=== PATIENT | male | born 1940 | race Caucasian/White ===

== ENCOUNTER → 2019-03-22 | Outpatient (REF) | payer OTHER ==
[2019-03-23 14:50] LABS: TOTAL PROTEIN 6.5 GM/DL (6.4-8.2)
[2019-03-23 15:20] LABS: TOTAL PROTEIN,RANDOM URINE 182.1 MG/DL (0.0-12.0); URINE TOTAL PROTEIN 182.1 MG/DL (0-12)
[2019-03-24 14:50] LABS: ANTINUCLEAR ANTIBODIES DIRECT Negative (Negative)
[2019-03-28 12:47] LABS: ALBUMIN 4.16 GM/DL (3.29-5.55); ALPHA-1-GLOBULIN % 4.7 % (2.9-4.9); ALPHA-1-GLOBULINS 0.31 GM/DL (0.17-0.41); ALPHA-2-GLOBULINS 0.91 GM/DL (0.42-0.99); BETA-1-GLOBULINS 0.36 GM/DL (0.28-0.60); BETA-1-GLOBULINS % 5.6 % (4.7-7.2); BETA-2-GLOBULINS 0.24 GM/DL (0.19-0.55); BETA-2-GLOBULINS % 3.7 % (3.2-6.5); GAMMA GLOBULINS 0.52 GM/DL (0.65-1.58)
[2019-03-30 15:23] LABS: UPEP INTERPRETATION NO M-SPIKE NOTED; URINE VOLUME RANDOM ML
== END ==
LOC: M LAB REF 13:26
PROVIDERS: ATTEND Internal Medicine Nephrology
DX: R80.9 Proteinuria, unspecified (principal)

== ENCOUNTER → 2019-03-28 | Outpatient (CLI) | payer OTHER ==
--- NOTE | 2019-03-29 12:01 | REP ---
Clinical: Chronic medical renal disease stage III. Technique: Real time costa scale ultrasound examination using curved array transducer. Findings: The bilateral kidneys are hyperechoic and demonstrate a decreased parenchymal thickness with increased central sinus fat and renovascular calcifications. No hydronephrosis, nephrolithiasis, or renal mass lesion. Right kidney measures 10.7 x 4.9 x 5.2 cm and includes 1.7 cm upper pole simple cyst. Left kidney measures 11.3 x 4.2 x 5.0 cm without cyst. Bladder is grossly unremarkable in appearance and without wall thickening or mass lesion. Impression: Findings consistent with chronic medical renal disease. Electronically Signed by Chao uMhammad MD 03/29/2019 05:04 A
== END ==
LOC: M RAD 10:22
PROVIDERS: ATTEND Internal Medicine Nephrology
DX: N18.3 Chronic kidney disease, stage 3 (moderate) (principal); I12.9 Hypertensive chronic kidney disease with stage 1 through stage 4 chronic kidney disease, or unspecified chronic kidney disease; E11.22 Type 2 diabetes mellitus with diabetic chronic kidney disease

== ENCOUNTER → 2019-04-06 | Outpatient (REF) | payer OTHER ==
[2019-04-12 14:15] LABS: ANCA-ATYPICAL <1:20 titer (Neg:<1:20); ANTI DS-DNA AB <1:10 titer (.); CYTOPLASMIC NEUTROP AB ANCA-C <1:20 titer (Neg:<1:20); PERINUCLEAR AB ANCA-P <1:20 titer (Neg:<1:20)
== END ==
LOC: M LAB REF 12:35
PROVIDERS: ATTEND Internal Medicine Nephrology
DX: R80.9 Proteinuria, unspecified (principal)

== ENCOUNTER → 2020-04-10 | Outpatient (REF) | payer OTHER | LOC: M LAB REF 16:40 | PROVIDERS: ATTEND Internal Medicine Nephrology | DX: N39.0 Urinary tract infection, site not specified (principal) ==

== ENCOUNTER → 2020-04-11 | Outpatient (CLI) | payer OTHER ==
--- NOTE | 2020-05-02 07:11 | REP ---
BLADDER ULTRASOUND: 04/11/20 CLINICAL: Chronic renal disease and UTI. TECHNIQUE: Real time costa scale ultrasound examination using curved array transducer. FINDINGS: Mild bladder wall thickening to 4.8mm is appreciated without discrete bladder mass. A left ureteral jet was noted during examination, but right ureteral jet was never identified. Small amount of debris is appreciated which is nonspecific and may be correlated with urinalysis. Pre-void bladder measures 14.8 x 8.3 x 9.4cm (754cc). Post-void bladder measures 12.0 x 8.0 x 6.5cm (407cc). Post-void residual: 54% IMPRESSION: Mild bladder wall thickening and increased post-void residual volume as noted above. Findings are nonspecific and may be related to outlet obstruction. MTDD
== END ==
LOC: M RAD 09:47
PROVIDERS: ATTEND Internal Medicine Nephrology
DX: N18.3 Chronic kidney disease, stage 3 (moderate) (principal); N39.0 Urinary tract infection, site not specified; Z85.46 Personal history of malignant neoplasm of prostate

== ENCOUNTER → 2020-07-31 | Outpatient (CLI) | payer OTHER, MEDICARE ==
[2020-07-31 13:43] LABS: TESTOSTERONE < 7 NG/DL (241-827)
== END ==
LOC: M LAB 11:34
PROVIDERS: ATTEND Urology
DX: C61 Malignant neoplasm of prostate (principal)
CPT/HCPCS: 36415; 84403; G0103

== ENCOUNTER → 2020-10-03 | Outpatient (CLI) | payer MEDICARE ==
--- NOTE | 2020-10-03 14:12 | REP ---
INDICATION: PROSTATE CA. COMPARISON: None. TECHNIQUE/RADIOTRACER AND DOSE: Following the intravenous administration of 22 mCi technetium 99 M MDP, patient's whole-body is imaged in the anterior and posterior projections, with additional oblique and lateral projections obtained. FINDINGS: Mild scattered arthritic uptake is seen throughout the spine. There is periarticular mild arthritic uptake at shoulders and sternoclavicular joints. There is no compelling scintigraphic evidence of osseous metastases. Renal and bladder activity are seen. There is ehax-oh-[id number] left hydroureteronephrosis. IMPRESSION: No compelling scintigraphic evidence of osseous metastases. Xsuk-sq-tdqlderm left hydroureteronephrosis. <Electronically signed by Quinn Mccarthy > 10/03/20 [id number]
== END ==
LOC: M RAD 10:39
PROVIDERS: ATTEND Urology
DX: C61 Malignant neoplasm of prostate (principal)
CPT/HCPCS: 78306; A9503

== ENCOUNTER → 2020-10-28 | Outpatient (CLI) | payer MEDICARE ==
--- NOTE | 2020-10-28 14:01 | REP ---
INDICATION: RESTAGING PROSTATE CANCER C61. COMPARISON: Comparison radionuclide bone scan October 03, 2020.. TECHNIQUE: Forty-nine minutes following the intravenous injection of a 18.50 mCi dose of F-18 FDG, three-dimensional PET scintigraphy is acquired from the skull base to the proximal thighs. Triplanar noncontrast CT scanning is acquired through the same anatomic range for attenuation correction, and image registration with scan parameters optimized to minimize radiation exposure to the patient. PET scintigraphy and CT datasets were fused and displayed on a workstation with multiplanar and projection display capability. FINDINGS: Head and neck soft tissues are unremarkable. No abnormal hypermetabolic uptake is seen within the thorax. In the abdomen and pelvis, normal hepatic, splenic, and gastrointestinal FDG accumulation is seen. There is moderate left-sided hydronephrosis and hydroureter. The left ureter is dilated to the level of the pelvis where there is left posterior pelvic sidewall soft tissue density and corresponding hypermetabolic uptake consistent with extraprostatic disease extending to the left posterior pelvic sidewall. Maximum standard uptake value here is 6.07. There is hypermetabolic uptake and throughout the prostate and extending into the seminal vesicles and possibly the rectum. Maximum standard uptake value in the prostate bed is 9.44. Seminal vesicle uptake, 9.43. There is no evidence of a pelvic deandra hypermetabolic uptake. There is no definite hypermetabolic skeletal uptake to suggest bony metastasis. IMPRESSION: Hypermetabolic uptake in the prostate bed and in the seminal vesicles. There is hypermetabolic tissue extending to the left posterolateral pelvic sidewall and the there is evidence of obstructive uropathy on the left related to this. No evidence of deandra disease in the pelvis or abdomen. No scintigraphic evidence of skeletal metastasis. <Electronically signed by Jeff Temple > 10/28/20 [id number]
== END ==
LOC: M PLARAD 09:22
PROVIDERS: ATTEND Urology
DX: C61 Malignant neoplasm of prostate (principal); N13.9 Obstructive and reflux uropathy, unspecified; D41.22 Neoplasm of uncertain behavior of left ureter
CPT/HCPCS: 78815; A9552

== ENCOUNTER → 2020-11-14 | Outpatient (REF) | payer MEDICARE ==
[~2020-11-14] MED LIST: ALEN70SO PO; ALLO100T PO; ASPI81CH10 PO; ATOR40TA75 PO; BICA50TA9 PO; CALC1CAP31 PO; HUMA100I3 SC; KP F1200 PO; LANTINJ4 SC; LEVO25TA5 PO; LOSA25TA14 PO; SUPE600T4 PO; TAMS1CAP17 PO
[2020-11-14 14:19] LABS: APPEARANCE, URINE CLOUDY (CLEAR); BACTERIA, URINE AUTO 1+ (NEGATIVE); BILIRUBIN, URINE AUTO NEGATIVE (NEGATIVE); BLOOD, URINE BLOOD NEGATIVE (NEGATIVE); COLOR, URINE YELLOW (YELLOW); GLUCOSE, URINE (UA) AUTO NEGATIVE (NEGATIVE); KETONE, URINE AUTO NEGATIVE (NEGATIVE); LEUKOCYTE ESTERASE, URINE AUTO 3+ (NEGATIVE); MUCUS, URINE SMALL (NEGATIVE); NITRITE, URINE AUTO NEGATIVE (NEGATIVE); PROTEIN, URINE AUTO 2+ mg/dL (NEGATIVE); RBC, URINE AUTO 2 /HPF (0-3); SPECIFIC GRAVITY URINE AUTO 1.012 (1.002-1.035); SQUAMOUS EPITHELIAL CELL UR AU 0 /HPF (0-6); UROBILINOGEN, URINE AUTO 0.2 mg/dL (0.0-2.0); WBC, URINE AUTO TNTC /HPF (0-3)
== END ==
LOC: M SMT 11:18
PROVIDERS: ATTEND Urology
DX: R33.9 Retention of urine, unspecified (principal); C61 Malignant neoplasm of prostate

== ENCOUNTER → 2020-11-18 | Outpatient (CLI) | payer MEDICARE | LOC: M LABSMTC 10:32 | PROVIDERS: ATTEND Anesthesiology | DX: Z01.818 Encounter for other preprocedural examination (principal); Z11.52 Encounter for screening for COVID-19 ==

== ENCOUNTER 2020-11-21 08:44 | Day surgery (SDC) | payer MEDICARE ==
[~2020-11-21] VITALS: Ht 170.2 cm; Wt 66.3 kg
[~2020-11-21 08:44] MED LIST changes: +LIDOCAINE 1% MDV 20ML VIAL SQ PRN; +LR 1,000 ML IV ONE; +ceFAZolin SOD 2 GM in IV 1 EA IV ONE
[2020-11-21] MEDS ORDERED: LIDOCAINE 2% 100MG/5ML SDV (FOR ANES.) As Ordered ONE (09:53)
[2020-11-21] MEDS ORDERED: KETOROLAC 60MG 2ML VIAL As Ordered ONE (09:53)
[2020-11-21] MEDS ORDERED: ONDANSETRON 4MG/2ML VIAL As Ordered ONE (09:53)
[2020-11-21] MEDS ORDERED: propofoL 500 MG/50 ML VIAL As Ordered ONE (09:54)
[2020-11-21] MEDS ORDERED: fentaNYL 100 MCG/2 ML INJECTION (J3010) As Ordered ONE (09:54)
[2020-11-21] MEDS ORDERED: MIDAZOLAM INJ 2MG/2ML VIAL (J2250 PER 1MG) As Ordered ONE (09:54)
[2020-11-21] MEDS ORDERED: LIDOCAINE 2% 5ML JELLY UROJET As Ordered ONE ×2 (10:08→10:09)
[2020-11-21] MEDS: CONRAY-60 60% 50ML VIAL (Q9961) As Ordered ONE (10:55)
--- NOTE | 2020-11-21 12:22 | REP ---
INDICATION: LEFT STENT. COMPARISON: None. TECHNIQUE: Intraoperative fluoroscopic imaging using C-arm technique. FINDINGS: Images demonstrate grade 3 hydroureteronephrosis and subsequent ureteral stent placement. Total fluoroscopic time 136 seconds. IMPRESSION: Status post left ureteral stent placement <Electronically signed by Chao Muhammad > 11/21/20 [id number]
--- NOTE | 2020-11-21 13:21 | RO ---
OPERATIVE NOTE DATE OF OPERATION: 11/21/2020 PREOPERATIVE DIAGNOSIS: Left ureteral obstruction, metastatic prostate cancer. POSTOPERATIVE DIAGNOSIS: Left ureteral obstruction, metastatic prostate cancer. PROCEDURE: Cystoscopy, left ureteral dilation, left ureteral catheterization, left retrograde pyelogram with intraop interpretation of images. SURGEON: Salvador Parker MD APPLIANCE SALES ASSOCIATE: None. ANESTHESIA: MAC. OPERATIVE INDICATIONS: This is a 80-year-old male with left ureteral obstruction due to metastatic prostate cancer. He is brought to the operating room today with plan to place left ureteral stent. DESCRIPTION OF PROCEDURE: The patient was brought to the operating room and MAC anesthesia was administered. Prophylactic antibiotics were infused. He was placed in dorsal lithotomy position and prepped and draped in usual sterile fashion. A rigid cystoscope was inserted in the urethral meatus and advanced into the bladder. I then advanced a guidewire in left collecting system. Of note there was some difficulty due to narrowing in the distal left ureter. I then advanced the 5-Zimbabwean open-ended ureteral catheter into the left collecting system and this also went up with some difficulty. I then withdrew the wire and shot a retrograde pyelogram. It was notable for severe left hydroureteronephrosis down to the level of the bladder. At this point I advanced the guidewire back up the left collecting system. I then tried to advance the sheath for a metallic stent into the left collecting system but due to the stricture noted at the left distal ureter I was not able to get the sheath into the left collecting system. I therefore tried dilating his left ureter with fascial dilators and they would not properly dilate the distal left ureter. The dilators just kept bending inside the bladder. At this point I then tried to advance a 7-Zimbabwean x 22 cm black silicone ureteral stent over the wire up into the left collecting system. Due to the constriction of the distal ureter the 7-Zimbabwean black silicone stent would not go in. At this point I lastly tried to advance a 5-Zimbabwean x 22-32 cm JJ ureteral stent into the left collecting system and it too would not go up the distal ureter as it was too narrow and this was the smallest stent that we have. Because of this it was determined that it would not be possible to actually stent the patient's left ureter. At this point I withdrew the wire as well as the stent. I then inserted a 16-Zimbabwean Coude catheter back into the patient's bladder. The balloon was filled with 10 mL of sterile water and then the catheter was connected to gravity drainage. The patient was taken out of the dorsal lithotomy position, awakened from anesthesia and transferred to the recovery room in stable condition. ESTIMATED BLOOD LOSS: 10 mL. COMPLICATIONS: None. SPECIMEN: None. PLAN: In order to drain the patient's left collecting system he will need to have a nephrostomy tube placed. Will set this up to be done as an outpatient. SUSANNE
[2020-11-21 13:36] VITALS: BP 131/64
== END 2020-11-21 14:05 | disposition home or self-care (01) ==
LOC: M SDC 08:44
PROVIDERS: ATTEND Urology
DX: N13.1 Hydronephrosis with ureteral stricture, not elsewhere classified (principal); Z85.46 Personal history of malignant neoplasm of prostate; E11.22 Type 2 diabetes mellitus with diabetic chronic kidney disease; I13.10 Hypertensive heart and chronic kidney disease without heart failure, with stage 1 through stage 4 chronic kidney disease, or unspecified chronic kidney disease; I25.10 Atherosclerotic heart disease of native coronary artery without angina pectoris; Z95.5 Presence of coronary angioplasty implant and graft; E78.00 Pure hypercholesterolemia, unspecified; M10.9 Gout, unspecified; M81.0 Age-related osteoporosis without current pathological fracture; N18.30 Chronic kidney disease, stage 3 unspecified; Z79.899 Other long term (current) drug therapy; Z79.82 Long term (current) use of aspirin; Z79.84 Long term (current) use of oral hypoglycemic drugs; Z79.2 Long term (current) use of antibiotics
CPT/HCPCS: 52332; 52351; 74420; C1769; C2617; J0690; J1885; J2250; J2405; J3010; Q9961

== ENCOUNTER → 2020-11-26 | Outpatient (POV) | payer MEDICARE ==
[~2020-11-26] VITALS: Ht 171.4 cm; Wt 81.8 kg
[~2020-11-26] MED LIST changes: -LIDOCAINE 1% MDV 20ML VIAL SQ PRN; -LR 1,000 ML IV ONE; -ceFAZolin SOD 2 GM in IV 1 EA IV ONE
[2020-11-26 12:47] VITALS: BP 149/85
--- NOTE | 2020-11-27 13:59 | IRCOV ---
[facility] IR Consult Office Visit IR Consult Office Visit DATE: Nov 26, 2020 REASON FOR CONSULTATION/CHIEF COMPLAINT: Left ureteral obstruction. HISTORY OF PRESENT ILLNESS: 80-year-old male with metastatic prostate cancer, urinary retention and left-sided hydronephrosis, referred by urology for possible left nephrostomy drainage. Patient denies any relatable symptoms. Specifically no left flank pain, fevers or chills. He reports this was found on routine imaging. Patient reports prior episodes of acute urinary retention and does have a chronic Steel in place. It appears he does not have any labs in our system and I'm not sure of his renal function. ALLERGIES: Please see below. HOME MEDICATIONS: Please see below. PAST MEDICAL HISTORY: Diabetes Abdominal hernia Hypertension Hypothyroidism Prostate cancer Aortic aneurysm Kidney disease Gout Hyperlipidemia Vitamin D deficiency Osteopenia CAD PAST SURGICAL HISTORY: Cystoscopy May 2020 FAMILY HISTORY: Noncontributory. SOCIAL HISTORY: Nonsmoker. Denies alcohol or drugs. REVIEW OF SYSTEMS: Otherwise negative. PHYSICAL EXAMINATION: VITAL SIGNS: Please see below. GENERAL APPEARANCE: Appears well. Comfortable at rest. HEENT: No scleral icterus. RESPIRATORY: Normal breathing at rest. CARDIOVASCULAR: Normal rate. ABDOMEN: Soft nontender. No flank tenderness. EXTREMITIES: No edema. NEUROLOGICAL: Alert and oriented. PSYCHIATRIC: Appropriate to circumstance. LABORATORY DATA: None recent in system. Imaging: I personally reviewed the PET/CT performed 10/28/2020. Good-sized bilateral kidneys without significant parenchymal atrophy with left-sided hydronephrosis and hydroureter all the way to the bladder. Steel in the bladder. 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 We discussed the risks and benefits of nephrostomy and nephro ureteral catheters. Patient would like to proceed. We'll schedule the patient for a left-sided nephrostomy. Providing he tolerates this well, we can always discuss options for antegrade internal/external stent placement and/or antegrade complete internalization and ongoing management by urology. I spent 30 minutes in consultation with the patient. Thank you for this referral. Cc Dr. Parker Allergies Coded Allergies: No Known Allergies (Verified , 11/14/20) Home Medications Scheduled Alendronate Sodium (Alendronate Sodium), 70 MG PO 1XWK, (Reported) Allopurinol (Allopurinol), 300 MG PO DAILY, (Reported) Aspirin (Aspirin), 81 MG PO DAILY, (Reported) Atorvastatin Calcium (Atorvastatin Calcium), 20 MG PO DAILY, (Reported) Bicalutamide (Bicalutamide), 50 MG PO DAILY, (Reported) Calcitriol (Calcitriol), 0.25 MCG PO 3XW, (Reported) Calcium Carbonate (Calcium), 600 MG PO BID, (Reported) Fish Oil/Dha/Epa (Fish Oil 1,200 mg Fish Oil), 1 CAP PO BID, (Reported) Insulin Glargine,Hum.rec.anlog (Lantus Solostar), 34 UNITS SC QHS, (Reported) Insulin Lispro (Humalog), Unknown Dose SC AC, (Reported) Levothyroxine Sodium (Levothyroxine Sodium), 25 MCG PO DAILY, (Reported) Losartan Potassium (Losartan Potassium), 25 MG PO DAILY, (Reported) Tamsulosin Hcl (Tamsulosin HCl), 0.4 MG PO QHS, (Reported) VS, I&O, 24H, Fishbone Vital Signs/I&O Vital Signs Date Time Temp Pulse Resp B/P (MAP) Pulse Ox O2 Delivery O2 Flow Rate FiO2 11/26/20 12:47 97.1 88 20 149/85 (106) 100 Room Air CHOLO BHATT MD Nov 27, 2020 13:59
== END ==
LOC: M IRPOV 11:35
PROVIDERS: ATTEND Radiology Diagnostic Radiology
DX: N13.0 Hydronephrosis with ureteropelvic junction obstruction (principal); N13.4 Hydroureter; C61 Malignant neoplasm of prostate; R33.9 Retention of urine, unspecified; E11.9 Type 2 diabetes mellitus without complications; I10 Essential (primary) hypertension; E03.9 Hypothyroidism, unspecified; I71.4 Abdominal aortic aneurysm, without rupture; N28.9 Disorder of kidney and ureter, unspecified; M10.9 Gout, unspecified; E78.5 Hyperlipidemia, unspecified; E55.9 Vitamin D deficiency, unspecified; M85.80 Other specified disorders of bone density and structure, unspecified site; I25.10 Atherosclerotic heart disease of native coronary artery without angina pectoris; Z79.4 Long term (current) use of insulin; Z79.82 Long term (current) use of aspirin; Z79.899 Other long term (current) drug therapy

== ENCOUNTER → 2020-12-05 | Outpatient (CLI) | payer MEDICARE ==
[~2020-12-05] MED LIST changes: +ISOVUE-300 61% 50ML VIAL As Ordered ONE; +LIDOCAINE 1% MDV 20ML VIAL As Ordered ONE; +MIDAZOLAM INJ 2MG/2ML VIAL (J2250 PER 1MG) As Ordered ONE; +ceFAZolin 1GM VIAL (J0690 PER 500MG) As Ordered ONE; +diphenhydrAMINE 50MG/ML VIAL (J1200) As Ordered ONE; +fentaNYL 100 MCG/2 ML INJECTION (J3010) As Ordered ONE
[2020-12-05 10:18] LABS: HEMATOCRIT 34.8 % (42.0-52.0); HEMOGLOBIN 11.3 g/dl (13.5-17.5); MEAN CORPUSCULAR HEMOGLOBIN 28.7 pg (27.0-33.0); MEAN CORPUSCULAR HGB CONC 32.5 g/dl (32.0-36.5); MEAN CORPUSCULAR VOLUME 88.3 fl (80.0-96.0); PLATELET COUNT, AUTOMATED 251 10^3/uL (150-450); RED BLOOD COUNT 3.94 10^6/uL (4.30-6.10); WHITE BLOOD COUNT 10.8 10^3/uL (4.0-10.0)
[2020-12-05] MEDS: ceFAZolin SOD 1 GM in D5W MINI-BAG PLUS 50 ML IV ONE (10:28)
[2020-12-05 10:32] LABS: INR 1.08; PROTHROMBIN TIME 14.2 SECONDS (12.5-14.3)
--- NOTE | 2020-12-05 12:29 | IRHP ---
[facility] IR Pre-Procedure H & P General Date of Service: December 05, 2020 Procedure: Same Day Surgery Interval History and Physical I have seen the patient and reviewed last H & P performed within 30 days. There is no significant interval change. History of Present Illness Chief Complaint The patient is a 80-year-old male admitted with a reason for visit of Ureteral Obstruction. PRE-PROCEDURE DIAGNOSIS: Left-sided hydronephrosis HEART: Normal rate LUNGS: Normal breathing at rest. ASA Classification ASA Classification: III-Severe systemic dis. Mallampati Score: II NPO: Yes Problems with prior sedation: No Obstructive Sleep Apnea: No Plan moderate sedation Allergies Coded Allergies: No Known Allergies (Verified , 11/14/20) Home Medications Scheduled Allopurinol (Allopurinol), 300 MG PO DAILY, (Reported) Aspirin (Aspirin), 81 MG PO DAILY, (Reported) Atorvastatin Calcium (Atorvastatin Calcium), 20 MG PO DAILY, (Reported) Bicalutamide (Bicalutamide), 50 MG PO DAILY, (Reported) Calcitriol (Calcitriol), 0.25 MCG PO 3XW, (Reported) Calcium Carbonate (Calcium), 600 MG PO BID, (Reported) Fish Oil/Dha/Epa (Fish Oil 1,200 mg Fish Oil), 1 CAP PO BID, (Reported) Insulin Glargine,Hum.rec.anlog (Lantus Solostar), 34 UNITS SC QHS, (Reported) Insulin Lispro (Humalog), Unknown Dose SC AC, (Reported) Levothyroxine Sodium (Levothyroxine Sodium), 25 MCG PO DAILY, (Reported) Losartan Potassium (Losartan Potassium), 25 MG PO DAILY, (Reported) Tamsulosin Hcl (Tamsulosin HCl), 0.4 MG PO QHS, (Reported) Discontinued Medications Alendronate Sodium (Alendronate Sodium), 70 MG PO 1XWK, (Reported) Discontinued Reason: S.O. states not taking VS, I&O, 24H, Fishbone Vital Signs/I&O Vital Signs Date Time Temp Pulse Resp B/P (MAP) Pulse Ox O2 Delivery O2 Flow Rate FiO2 12/05/20 12:25 93 20 100 Nasal Cannula 2 12/05/20 09:55 97.7 Laboratory Data 24H LABS Laboratory Tests 2 12/05/20 10:00: Nucleated Red Blood Cells % (auto) 0.0, Prothrombin Time 14.2H, Prothromb Time International Ratio 1.08 12/05/20 10:25: Bedside Glucose (Misc Panel) 132H CBC/BMP Laboratory Tests 12/05/20 10:00 CHOLO BHATT MD December 05, 2020 12:29
[2020-12-05 14:45] VITALS: BP 145/88
--- NOTE | 2020-12-06 12:48 | IRPON ---
IR Postoperative Note Date Of Procedure: December 05, 2020 Time Of Procedure: 16:00 IR Postoperative Note IR Percutaneous nephrostomy catheter placement using fluoroscopic and ultrasound guidance. IR Nephrostogram and Ureterogram. IR Ultrasound of the left kidney. IR moderate sedation. Clinical Information:Left-sided hydronephrosis. Physician: Dr. Leslie. Procedure: The patient was advised of the benefits, risks, and alternatives of the procedure and informed consent was obtained. A time out was performed with verification of the patient's name, MRN, site of procedure, and type of procedure to be performed. The patient was positioned in the prone position on the angiographic table. The site was prepped and draped in the usual sterile fashion. Moderate sedation was performed by the physician including the presence of an independent trained RN, who assisted in monitoring the patient's level of consciousness and physiological status. Following the administration of fentanyl and Versed, the physician spent 45 minutes of continuous widq-kw-efju time with the patient. A microphone boom operator radiograph reveals no gross abnormality. The anticipated puncture site on the flank was anesthetized with lidocaine. Using ultrasound guidance, a lower pole calyx was accessed with a 21 Gauge Chiba needle. A nephrostogram and ureterogram were performed demonstrating severe hydronephrosis and hydroureter. A [place] wire was then advanced into the c ollecting system, under fluoroscopy guidance. The needle was then exchanged for a nonvascular introducer set. An Amplatz wire was then advanced into the ureter, under fluoroscopy guidance. This sheath was removed over the wire. A 10 Finnish nephrostomy catheter was then advanced, over the wire and under fluoroscopy guidance into the renal collecting system. The pigtail was formed and locked in position. A final nephrostogram and ureterogram were performed confirming positioning of the pigtail within the renal pelvis with hydronephrosis. Ureterogram demonstrates hydroureter. The ureter is not patent to the urinary bladder. The catheter was sutured in position with 2-0 Prolene and a sterile dressing applied. The catheter was placed to gravity drainage. The patient tolerated the procedure well and was returned to the PRU in stable condition. EBL: < 5 mL. Complications:None. Conclusion: 1. Nephrostogram and Ureterogram demonstratemassive hydronephrosis and hydroureter. The ureter is not patent to the bladder. 2. Successful left-sided nephrostomy catheter placement. Patient to follow-up in IR after appropriate decompression for attempt at antegrade stenting. Thank you for this referral. Cc CHOLO Grissom MD December 06, 2020 12:48
== END ==
LOC: M IRPRO 09:36
PROVIDERS: ATTEND Radiology Diagnostic Radiology
DX: N13.30 Unspecified hydronephrosis (principal); Z79.4 Long term (current) use of insulin; Z79.82 Long term (current) use of aspirin; Z79.890 Hormone replacement therapy; Z79.899 Other long term (current) drug therapy

== ENCOUNTER → 2020-12-24 | Outpatient (POV) | payer MEDICARE ==
[~2020-12-24] VITALS: Ht 171.4 cm; Wt 70.5 kg
[~2020-12-24] MED LIST changes: -ISOVUE-300 61% 50ML VIAL As Ordered ONE; -LIDOCAINE 1% MDV 20ML VIAL As Ordered ONE; -MIDAZOLAM INJ 2MG/2ML VIAL (J2250 PER 1MG) As Ordered ONE; -ceFAZolin 1GM VIAL (J0690 PER 500MG) As Ordered ONE; -diphenhydrAMINE 50MG/ML VIAL (J1200) As Ordered ONE; -fentaNYL 100 MCG/2 ML INJECTION (J3010) As Ordered ONE
[2020-12-24 09:32] VITALS: BP 128/60
--- NOTE | 2020-12-24 14:37 | IRPN ---
[facility] IR Progress Note IR Progress Note DATE: December 24, 2020 FOLLOW-UP: Patient is status post left-sided nephrostomy placement for left sided hydronephrosis, related to a left distal ureteral obstruction. Patient is doing well. He denies any flank pain, fevers or chills. He does state the skin around the site is sore, especially when the catheter pulls. He does have a bag for the left nephrostomy catheter and a bag on his Steel. It is cumbersome to be up and about with 2 bags. ON EXAMINATION: Left nephrostomy catheter in place. Skin appears unremarkable. No redness or fluctuance at site. Clear urine in the nephrostomy bag. IMPRESSION: 80-year-old male with history of prostate cancer, with chronic Steel in place, now status post left-sided nephrostomy catheter placement for left- sided hydronephrosis and hydroureter. He does have a distal ureteral obstruction. Now after adequate decompression, I think it is a good idea to try to do an antegrade internal/external stent placement. This will allow the patient to be bag free, which is better for quality of life. But also maintain antegrade access for daily flushing of stent and IR exchanges. If patient tolerates the antegrade internal/external stent, patient may then be completely internalized in the future. We discussed the risks and benefits of the procedure and patient is agreeable to proceed. We'll schedule the patient for nephrostomy to antegrade internal/external stent conversion. Continue follow up with urology as to cause of distal obstruction and any possible therapies. Thank you for this referral. Cc Dr. Parekr Allergies Coded Allergies: No Known Allergies (Verified , 11/14/20) VS,Fishbone, I+O VS, Fishbone, I+O Vital Signs Date Time Temp Pulse Resp B/P (MAP) Pulse Ox O2 Delivery O2 Flow Rate FiO2 12/24/20 09:32 97.7 86 20 128/60 (82) 100 Room Air CHOLO BHATT MD December 24, 2020 14:37
== END ==
LOC: M IRPOV 09:11
PROVIDERS: ATTEND Radiology Diagnostic Radiology
DX: N13.1 Hydronephrosis with ureteral stricture, not elsewhere classified (principal); Z85.46 Personal history of malignant neoplasm of prostate; Z95.828 Presence of other vascular implants and grafts

== ENCOUNTER → 2020-12-25 | Outpatient (REF) | payer OTHER, MEDICARE ==
[2020-12-25 18:22] LABS: PERCENT SATURATION 12.2 % (19.7-50.0)
== END ==
LOC: M LAB REF 17:10
PROVIDERS: ATTEND Internal Medicine Nephrology
DX: D64.9 Anemia, unspecified (principal)

== ENCOUNTER 2021-01-24 23:24 | Emergency (ER) | payer OTHER ==
[~2021-01-24] VITALS: Ht 170.2 cm; Wt 81.8 kg
[2021-01-25 08:14] LABS: HEMATOCRIT 27.5 % (42.0-52.0); HEMOGLOBIN 8.8 g/dl (13.5-17.5); MEAN CORPUSCULAR HEMOGLOBIN 28.4 pg (27.0-33.0); MEAN CORPUSCULAR VOLUME 88.7 fl (80.0-96.0); PLATELET COUNT, AUTOMATED 189 10^3/uL (150-450); WHITE BLOOD COUNT 8.3 10^3/uL (4.0-10.0)
--- NOTE | 2021-01-25 08:15 | REPVR ---
PROCEDURE INFORMATION: Exam: US Retroperitoneal Limited, Kidneys Exam date and time: 01/25/2021 6:53 AM Age: 80 years old Clinical indication: Injury or trauma; Other: Patient pulled out left nephrostomy tube; Bleeding/hemorrhage; Luq; Injury date: 01/24/2021; Injury details: Patient ran over lt nephrostomy tube with wheel chair and oulled it out; Additional info: L nephrostomy tube pulled out today TECHNIQUE: Imaging protocol: Real-time ultrasound of the retroperitoneum with image documentation. Examination was focused on the kidneys. COMPARISON: RENAL US 03/28/2019 10:44:25 AM FINDINGS: Right kidney: The right kidney measures 9.5 x 4.7 x 4.3 cm. It again appears echogenic. No hydronephrosis or demonstrated stone, cyst or mass. Left kidney: The left kidney measures 11.3 x 5.0 x 5.5 cm. It again appears echogenic. There is moderate to severe hydronephrosis. No demonstrated stone, cyst or mass. Bladder: The urinary bladder is decompressed by Steel catheter. IMPRESSION: 1. Bilateral echogenic kidneys, compatible with medical renal disease, as on 03/28/2019. 2. Moderate to severe left-sided hydronephrosis. Electronically signed by: Duane Siddiqui On 01/25/2021 08:15:15 AM
[2021-01-25 08:37] LABS: ALBUMIN 2.5 GM/DL (3.2-5.2); BILIRUBIN,DIRECT 0.2 MG/DL (0.0-0.2); BILIRUBIN,TOTAL 0.4 MG/DL (0.2-1.0); CALCIUM LEVEL 8.1 MG/DL (8.8-10.2); CREATININE FOR GFR 2.44 MG/DL (0.70-1.30); GLOMERULAR FILTRATION RATE 27.4 (>42); POTASSIUM SERUM 3.9 MEQ/L (3.5-5.1); TOTAL PROTEIN 5.7 GM/DL (6.4-8.2)
[2021-01-25 08:38] LABS: RSV AMPLIFICATION NEGATIVE (NEGATIVE)
[2021-01-25 09:05] LABS: LYMPHOCYTES 6 % (16-44); MONOCYTES 5 % (0-5); NEUTROPHILS 80 % (28-66)
[2021-01-25 09:09] LABS: PLATELET ESTIMATE NORMAL (NORMAL)
[2021-01-25] MEDS ORDERED: ACETAMINOPHEN TAB 650MG DOSE (2X325MG) PO ONE (09:35)
[2021-01-25 10:10] VITALS: BP 100/60
[2021-01-25] MEDS ORDERED: NS 1,000 ML IV ONE (10:15)
[2021-01-25] MEDS ORDERED: cefTRIAXone SOD 2 GM in D5W MINI-BAG PLUS 50 ML IV ONE (10:15)
[2021-01-25] MEDS ORDERED: DIGOXIN INJ 0.5 MG/2 ML AMP (J1160) IV STA (10:25)
[2021-01-25] MEDS ORDERED: NS 1,450 ML in IV 1 EA IV ONE (10:40)
--- NOTE | 2021-01-25 11:04 | ED PDOC ---
Post-Departure Follow-Up Spoke with Dr. Stein (accepting physician) at [facility] to update on change in patient status, treatments initiated. Pt currently enroute via EMS. CARISA Tam TAYLOR E. PA-C Jan 25, 2021 11:04
== END 2021-01-25 10:48 | disposition short-term general hospital (02) ==
LOC: M ED 23:24
DX: T83.022A Displacement of nephrostomy catheter, initial encounter (principal); A41.9 Sepsis, unspecified organism; N13.30 Unspecified hydronephrosis; R50.9 Fever, unspecified; G93.40 Encephalopathy, unspecified; N39.0 Urinary tract infection, site not specified; N18.9 Chronic kidney disease, unspecified; N17.9 Acute kidney failure, unspecified; E11.65 Type 2 diabetes mellitus with hyperglycemia; E11.622 Type 2 diabetes mellitus with other skin ulcer; D64.9 Anemia, unspecified; I25.2 Old myocardial infarction; I11.9 Hypertensive heart disease without heart failure; I25.10 Atherosclerotic heart disease of native coronary artery without angina pectoris; K21.9 Gastro-esophageal reflux disease without esophagitis; Z87.442 Personal history of urinary calculi; Z87.440 Personal history of urinary (tract) infections; E03.9 Hypothyroidism, unspecified; M81.0 Age-related osteoporosis without current pathological fracture; E78.5 Hyperlipidemia, unspecified; Z85.46 Personal history of malignant neoplasm of prostate; L89.90 Pressure ulcer of unspecified site, unspecified stage; Z87.891 Personal history of nicotine dependence; Z99.3 Dependence on wheelchair; Z79.899 Other long term (current) drug therapy; Z79.82 Long term (current) use of aspirin
CPT/HCPCS: 36415; 76775; 80048; 80076; 81001; 83605; 83690; 85025; 87040; 87077; 87086; 87186; 87631; 93041; 96374; 96375; 99285; J0696; J1160